=== PATIENT | male | born 1990 | race Caucasian/White ===

== ENCOUNTER 2025-01-10 14:44 | Emergency (ER) | payer MEDICAID ==
[~2025-01-10] VITALS: Ht 182.9 cm; Wt 94.4 kg
[2025-01-10 14:53] VITALS: BP 141/75; PULSE 84; TEMP 97.8; O2SAT 97
--- NOTE | 2025-01-10 15:20 | RADIOLOGY REPORT ---
DI FOREARM,INCL.ONE JOINT, INDICATION: r/o fx RIGHT TECHNICAL DATA: Frontal and lateral views were obtained of the right forearm. COMPARISON: None FINDINGS: Midshaft ulna fracture. A distal radius fracture not excluded. Soft tissues are normal. IMPRESSION: Midshaft ulna fracture. A distal radius fracture not excluded.
[2025-01-10] MEDS ORDERED: IBUP-864 PO (15:37)
--- NOTE | 2025-01-10 15:38 | Physician Documentation ---
History of Present Illness ~ Chief Complaint: Arm Pain Stated Complaint: ARM PAIN Time Seen by MD: 15:22 Source: patient Mode of Arrival: POV Exam Limitations: no limitations HPI 34-year-old male fell down a couple stairs caught himself with his forearm concerned for fracture with small deformity Medication Reconciliation Allergies: Coded Allergies: No Known Allergies (Unverified , 01/10/25) Past Medical History Past Medical History: No Pertinent History Past Surgical History: noncontributory Lives with: Family Lives In: Home Occupation: employed Review of Systems All Other Systems at this time: Reviewed and Negative Musculoskeletal: Reports: see HPI Physical Exam Vital Signs: RN Vital Signs have been reviewed: Yes, Temperature: 97.8, Source: Temporal, Heart Rate: 84, Respiratory Rate: 16, BP: 141/75, Pulse Oximetry: 97, Weight: 94.400 Oxygen Flow Rate: 0 Physical Exam General: Alert, no apparent distress. HEENT: moist mucous membranes. Neck: Full range of motion. Respiratory: No respiratory distress speaking in full sentences Chest: No accessory muscle use. Cardiovascular: Appears well perfused Extremity: Sensation and circulation intact distally no severe deformity but palpation of the fracture. Neurologic: Oriented x4. Psychiatric: Normal mood and affect. Skin: Normal color, warm and dry. No edema, no ecchymosis. Procedures Splinting Location: Right forearm Pre-Made Type: Splint: sugar-tong Pre-Proc Neuro Vasc Exam: normal Post-Proc Neuro Vasc Exam: normal Splint Placed By: home sales consultant, Director Of Media Tolerated Procedure Well?: yes, no complications Progress Results/Orders Results/Orders Orders - FLORI DANIELS NP Ortho Orders (01/10/25 ) Completed Orders - FLORI DANIELS [employer] SPECIALIST Hydrocodone/Apap 10/325 ([place] 10/325mg (01/10/25 15:25) Vital Signs 01/10/25 14:53 Temp 97.8 Pulse 84 Resp 16 B/P (MAP) 141/75 Pulse Ox 97 O2 Flow Rate 0 EKG/XRAY/CT/US/VASC/MRI Bone/Soft Tissue X-Ray (Ext.) : Additional Comment DI FOREARM,INCL.ONE JOINT, INDICATION: r/o fx RIGHT TECHNICAL DATA: Frontal and lateral views were obtained of the right forearm. COMPARISON: None FINDINGS: Midshaft ulna fracture. A distal radius fracture not excluded. Soft tissues are normal. IMPRESSION: Midshaft ulna fracture. A distal radius fracture not excluded. Medical Decision Making Additional information obtaine: N/A Findings X-ray indicates ulnar fracture [facility] patient will be referred although patient lives out of town and we will contact his primary as well. General Diff Dx:Considerations: Include: Abrasion, Fracture, Hematoma, Sprain Shoulder Diff Dx:Consideration: Include: Other Elbow Diff Dx:Considerations: Include: Other Wrist Diff Dx:Considerations: Include: Other Hand Diff Dx:Considerations: Include: Other Finger Diff Dx:Considerations: Include: Other Departure Time of Disposition: 15:36 Disposition: 01 HOME / SELF CARE / HOMELESS Impression: Primary Impression: Fracture of ulna Condition: Stable Discharge Instructions: Forearm Fracture, Pediatric Additional Instructions: Midshaft ulnar fracture. Contact [facility] tomorrow as well as her primary care as you live out of town you potentially will require a new referral to Orthopedics closer to where you live Referrals: NO PRIMARY CARE PROVIDER (PCP) Prescriptions Ibuprofen (Ibu) 800 Mg Tablet 1 TAB PO Q8H for 7 Days, #21 TAB 0 Refills Prov: FLORI DANIELS NP 01/10/25 Education Educated: Patient Educated regarding: diagnosis, treatment, need for follow up Signature Scribe Signature: No scribe Attestation: The note accurately reflects work and decisions made by me.Flori Daniels - CURT 01/10/25 15:38 FLORI DANIELS NP Jan 10, 2025 15:38
[2025-01-10 15:47] VITALS: RESP 16
[2025-01-10] MEDS: HYDROcodone/acetaminophen 10/325mg tab PO ONE (15:47)
== END 2025-01-10 15:58 | disposition home or self-care (01) ==
LOC: ER 14:46
DX: S52.291A Other fracture of shaft of right ulna, initial encounter for closed fracture (principal); W10.9XXA Fall (on) (from) unspecified stairs and steps, initial encounter; Y93.89 Activity, other specified; Y92.89 Other specified places as the place of occurrence of the external cause; Y99.8 Other external cause status
CPT/HCPCS: 29125; 73090; 99283; A4565; A6446; A6449